=== PATIENT | female | born 1980 | race Two or more races ===

== ENCOUNTER 2017-04-01 23:26 | Emergency (ER) | payer SELFPAY ==
[~2017-04-01] VITALS: Ht 167.6 cm; Wt 59.0 kg
--- NOTE | 2017-04-01 23:30 | NUR ---
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 - DROOLING NOTED. ANXIETY NOTED. VSS. PT AAOX4. PT ABLE TO SPEAK IN 4-6 WORD SENENCES. PT PLACED ON MONITOR AND POX. AWAITING MD ALICEA.
--- NOTE | 2017-04-01 23:48 | NUR ---
MAI RICARDO AT BEDSIDE FOR EVAL.
[2017-04-02] MEDS ORDERED: GLUCAGON,HUMAN RECOMBINANT 1 MG/VIAL VIAL IM ONE
[2017-04-02] MEDS ORDERED: LORAZEPAM INJ 2 MG/ML VIAL IM ONE
[2017-04-02] MEDS ORDERED: GLUCAGON,HUMAN RECOMBINANT 1 MG/VIAL VIAL ONE (00:04)
[2017-04-02] MEDS ORDERED: LORAZEPAM INJ 2 MG/ML VIAL ONE (00:05)
[2017-04-02] MEDS ORDERED: IV NS 0.9% 1,000 ML BAG IV ONE (01:30)
[2017-04-02 01:37] LABS: BASOPHILS % (AUTO) 0.2 % (0.0-2.0); EOSINOPHILS # (AUTO) 0.1 /CMM (0.0-0.7); EOSINOPHILS % (AUTO) 0.4 % (0.0-6.0); HEMATOCRIT 37 % (33-45); HEMOGLOBIN 12.9 g/dL (11.5-14.8); LYMPHOCYTES # (AUTO) 1.7 /CMM (0.8-4.8); LYMPHOCYTES % (AUTO) 10.1 % (20.0-44.0); MEAN CORPUSCULAR HEMOGLOBIN 31 PG (26.0-33.0); MEAN CORPUSCULAR HGB CONC 35 g/dl (31.0-36.0); MEAN CORPUSCULAR VOLUME 88 fL (82-100); MONOCYTES # (AUTO) 0.6 /CMM (0.1-1.30); MONOCYTES % (AUTO) 3.8 % (2.0-12.0); NEUTROPHILS # (AUTO) 14.6 /CMM (1.8-8.9); NEUTROPHILS % (AUTO) 85.5 % (43.0-81.0); PLATELET COUNT (AUTO) 217 /CMM (150-450); RDW COEFFICIENT OF VARIATION 13.2 (11.5-15.0); RED BLOOD CELL COUNT(AUTO) 4.21 MIL/uL (4.0-5.2); WHITE BLOOD COUNT (AUTO) 17.1 K/uL (4.3-11.0)
[2017-04-02 01:49] LABS: CALCIUM, SERUM 8.9 mg/dL (8.5-10.1); CREATININE 0.9 mg/dL (0.6-1.3)
[2017-04-02 01:52] LABS: INR 1.03 (0.87-1.13)
[2017-04-02 01:56] LABS: ALBUMIN 3.5 g/dL (3.4-5.0); BILIRUBIN,DIRECT 0.1 mg/dL (0.0-0.2); BILIRUBIN,TOTAL 0.5 mg/dL (0.2-1.0); TOTAL PROTEIN, SERUM 6.6 g/dL (6.4-8.2)
--- NOTE | 2017-04-02 01:57 | NUR ---
PT TOLERATED PO FLUID, PAC RICARDO AWARE.
[2017-04-02 02:16] LABS: BAND % (MANUAL) 3 % (0.0-5.0); LYMPHOCYTES % (MANUAL) 13 % (16-48); MONOCYTES % (MANUAL) 4 % (0-11.0); NEUTROPHILS % (MANUAL) 80 (42-76)
[2017-04-02] MEDS ORDERED: MAG HYDROX/AL HYDROX/SIMETH 30 ML UDC ONE (02:28)
[2017-04-02] MEDS ORDERED: LIDOCAINE VISCOUS 2% UD 15 ML UDC ONE (02:28)
[2017-04-02] MEDS ORDERED: MAG HYDROX/AL HYDROX/SIMETH 30 ML UDC PO ONE (02:30)
[2017-04-02] MEDS ORDERED: LIDOCAINE VISCOUS 2% UD 15 ML UDC MM ONE (02:30)
--- NOTE | 2017-04-02 02:38 | NUR ---
Patient is resting comfortably in bed with eyes closed. Easily aroused. VSS. BOYFRIEND BEDSIDE
--- NOTE | 2017-04-02 03:00 | NUR ---
PT ASSESSED, STATES "I FEEL BETTER NOW." DOMINIC DAUGHERTY
--- NOTE | 2017-04-02 03:09 | NUR ---
Patient discharged to home in stable condition. Written and verbal after care instructions given. Patient verbalizes understanding of instruction.IV removed. Catheter intact and site benign. Pressure and 4x4 applied to site. No bleeding noted. PT ambulated with steady gait out of ER accompanied by .
[2017-04-02 03:13] VITALS: BP 91/61
== END 2017-04-02 03:00 | disposition home or self-care (01) ==
LOC: ER 23:28
DX: K20.8 Other esophagitis (principal); K22.4 Dyskinesia of esophagus
CPT/HCPCS: 36415; 70360-TC; 71045-TC; 80048-TC; 80076-TC; 85025-TC; 85730-TC; 87081-TC; A4606; J1610; J2060; J7030; Z7610